=== PATIENT | female | born 1960 | race Caucasian/White ===

== ENCOUNTER 2017-08-15 11:16 | Emergency (ER) | payer OTHER ==
[~2017-08-15] VITALS: Ht 157.5 cm; Wt 74.8 kg
[~2017-08-15 11:16] MED LIST: DULO60 PO; FURO40 PO; HYDR10 PO; IBUP800 PO; Metamucil Smooth1 EA PO; Neurontin300 MG PO; OLAN10A PO; POTCHL10ER PO; Pravachol80 MG PO; RANI150 PO; TOPI50 PO
[2017-08-15] MEDS ORDERED: Fiorinal Capsu1 EACH PO (12:00)
[2017-08-15] MEDS ORDERED: CYCL10 PO (12:10)
[2017-08-15] MEDS ORDERED: TRAM50 PO (12:10)
== END 2017-08-15 12:21 | disposition home or self-care (01) ==
LOC: ER 11:16
DX: M54.5 Low back pain (principal); Z88.2 Allergy status to sulfonamides; Z88.8 Allergy status to other drugs, medicaments and biological substances; Z79.899 Other long term (current) drug therapy; Z87.891 Personal history of nicotine dependence
CPT/HCPCS: 96372; 99283; J1885